=== PATIENT | male | born 1960 | race Caucasian/White ===

== ENCOUNTER 2023-10-10 13:47 | Outpatient (OUT) | payer MEDICARE, MEDICAID, SELFPAY ==
--- NOTE | 2023-10-10 14:40 | P.CN_ITS ---
Consult Note: HPI Data of Consult Patient: new to practice Consult date: 10/10/23 Requesting Physician: Adis Cheung MD Primary Care Provider: ELVI KOHLER Consult Narrative Reason for consult: right posterior head pain Narrative: 63yom who presents for evaluation. he has had posterior and temporal right head pain for several years, which was precipitated by a neurosurgical procedure. he has tried various medications in the past, with limited benefit. he lives in a half-way and is under their care. he denies adverse med side effects. cc:: CC: Adis Cheung MD Review of Systems ROS Status of ROS 10 or more systems reviewed and unremark able except as noted in history and below Exam Narrative Exam Narrative: Psych-alert and oriented x 3.? Attentive and appropriate, constitutionally normal, displays normal mood and affect per situation.? There are no obvious deficits in memory, reasoning, or intellect.? Cranial nerves 3-12 are grossly intact.? Pupils are equally round and reactive to light. No notable photophobia. There is significant palpatory tenderness over the right occipital nerve at the occipital groove. Coordination remains intact.? Gait remains non-antalgic. Assessment and Plan Assessment and Plan (1) Occipital neuralgia of right side: Plan 63yom who presents for evaluation. failed conservative measures. given his sympt oms, it is likely that he suffers from occipital neuralgia. it is prudent to attempt a right occipital nerve block. he is in agreement. medications reviewed, no changes, as he is under care of [facility]-way from medication perspective. follow up in 8 weeks. Procedure: Right occipital nerve block Medications: Bupivacaine 0.25% 2cc, kenalog 40mg I explained the details of the procedure to the patient including the risks, benefits and alternatives. We had an informed discussion and the patient verbalized understanding and signed the consent form. All questions were answered appropriately.? A time out was performed.The patient was identified, the chart was reviewed, and all allergies were confirmed.? Laterality was conducted and marked.? The right side of the occiput was sterilely prepped times three using alcohol. The occipital artery was palpated, then a connor was placed two centimeters lateral to the greater occipital protuberance.? A 27 gauge 1 1/2 inch needle was used to i nject a total of 2.0 mL of 0.25% Bupivicaine with 40 mg of Methylprednisolone after negative aspiration for? heme, CSF, or other bodily fluid.? The needle was then fanned in the direction of the greater occipital nerve.? Vital signs were monitored before, during, and after the procedure and remained stable at all points.? The patient was discharged with no complications.
== END 2023-10-10 13:48 | disposition home or self-care (01) ==
PROVIDERS: PCP Internal Medicine; Visit Provider Anesthesiology
DX: M54.81 Occipital neuralgia (principal)
CPT/HCPCS: 64405

== ENCOUNTER 2023-12-12 13:17 | Outpatient (OUT) | payer MEDICARE, MEDICAID, SELFPAY ==
--- NOTE | 2023-12-12 14:18 | P.CN_ITS ---
Consult Note: HPI Data of Consult Patient: known to practice within the last 3 years Consult date: 12/12/23 Requesting Physician: Adis Cheung MD Primary Care Provider: ELVI KOHLER Consult Narrative Reason for consult: left neck and shoulder pain, left arm pain Narrative: 63yom who presents for assessment. notes moderate improvement after previous right occipital nerve block. now notes pain in left neck and shoulder that radiates down left arm. been ongoing for several years, now getting worse. uses multiple medications, including tylenol, lyrica, percocet, cymbalta, ibuprofen. denies adverse med side effects. cc:: CC: Adis Cheung MD Review of Systems ROS Status of ROS 10 or more systems reviewed and unremark able except as noted in history and below Meds Home Medications and Allergies Home Medications Medication Instructions Recorded Confirmed Type acetaminophen 650 mg 650 mg PO .Q6 PRN pain 10/10/23 10/10/23 History tablet,extended release (8 Hour Pain Reliever) alprazolam 0.5 mg tablet 0.5 mg PO BID 10/10/23 10/10/23 History amlodipine 5 mg tablet 5 mg PO DAILY 10/10/23 10/10/23 History aspirin 81 mg tablet,delayed 81 mg PO DAILY 10/10/23 10/10/23 History release (Adult Low Dose Aspirin) atorvastatin 80 mg tablet 80 mg PO DAILY 10/10/23 10/10/23 History calcium carbonate 200 mg calcium 200 mg PO TID 10/10/23 10/10/23 History (500 mg) chewable tablet (Antacid (calcium carbonate)) chlorthalidone 25 mg tablet 25 mg PO DAILY 10/10/23 10/10/23 History cyanocobalamin (vitamin B-12) 500 500 mcg PO DAILY 10/10/23 10/10/23 History mcg tablet (B-12 DOTS) duloxetine 20 mg capsule,delayed 20 mg PO .AM 10/10/23 10/10/23 History release (Cymbalta) duloxetine 30 mg capsule,delayed 30 mg PO .HS 10/10/23 10/10/23 History release (Cymbalta) empagliflozin 10 mg tablet 10 mg PO DAILY 10/10/23 10/10/23 History (Jardiance) ergocalciferol (vitamin D2) 50,000 50,000 unit PO .weekly 10/10/23 10/10/23 History unit tablet finasteride 5 mg tablet (Proscar) 5 mg PO DAILY 10/10/23 10/10/23 History folic acid 1 mg tablet 1 mg PO DAILY 10/10/23 10/10/23 History hydroxyzine pamoate 25 mg capsule 25 mg PO BID PRN itching 10/10/23 10/10/23 History (Vistaril) ibuprofen 800 mg tablet (IBU) 800 mg PO TID-QID PRN pain 10/10/23 10/10/23 History lidocaine 4 % topical patch 1 patch topical Q12H 10/10/23 10/10/23 History (Lidocaine Pain Relief) magnesium hydroxide 400 mg/5 mL 5 ml PO DAILY PRN constipation 10/10/23 10/10/23 History oral suspension (Milk of Magnesia) melatonin 10 mg capsule 10 mg PO DAILY 10/10/23 10/10/23 History metformin 1,000 mg tablet 1,000 mg PO BID 10/10/23 10/10/23 History modafinil 200 mg tablet 200 mg PO DAILY 10/10/23 10/10/23 History oxybutynin chloride 5 mg tablet 5 mg PO TID PRN bladder spasms 10/10/23 10/10/23 History oxycodone-acetaminophen 5 mg-325 1 tab PO TID PRN pain 10/10/23 10/10/23 History mg tablet (Percocet) phenazopyridine 200 mg tablet 200 mg PO Q8H PRN pain 10/10/23 10/10/23 History (Pyridium) polyethylene glycol 1 %-polyvinyl 1 drp ophthalmic (eye) QID 10/10/23 10/10/23 History alcohol 1 % eye drops potassium chloride 20 mEq 20 meq PO BID 10/10/23 10/10/23 History tablet,extended release pregabalin 100 mg capsule (Lyrica) 100 mg PO .HS 10/10/23 10/10/23 History pregabalin 100 mg capsule (Lyrica) 100 mg PO DAILY 10/10/23 10/10/23 History pregabalin 150 mg capsule (Lyrica) 150 mg PO .HS 10/10/23 10/10/23 History ropinirole 2 mg tablet 2 mg PO DAILY 10/10/23 10/10/23 History sertraline 50 mg tablet 50 mg PO DAILY 10/10/23 10/10/23 History sodium chloride 1,000 mg soluble 1,000 mg PO DAILY 10/10/23 10/10/23 History tablet tamsulosin 0.4 mg capsule 0.8 mg PO DAILY 10/10/23 10/10/23 History thiamine HCl (vitamin B1) 100 mg 50 mg PO DAILY 10/10/23 10/10/23 History tablet tizanidine 2 mg capsule 2 mg PO TID PRN muscle spasticity 10/10/23 10/10/23 History tramadol 50 mg tablet 50 mg PO Q6H PRN pain 10/10/23 10/10/23 History triamcinolone acetonide 40 mg/mL 40 mg Infiltration QWEEK 10/10/23 10/10/23 History suspension for injection Exam Narrative Exam Narrative: Psych-alert and oriented x 3.? Attentive and appropriate, constitutionally normal, displays normal mood and affect per situation.? There are no obvious deficits in memory, reasoning, or intellect.? Skin-no obvious rashes, bruising, or erythema noted to the patient's area of pain. Extremities-upper extremities are warm with minimal edema and palpable pulses. Cervical- tenderness to palpation noted in the cervical spine and paraspinal musculature.? Pain is elicited with extension, and lateral rotation of the cervical spine.? Range of motion is slightly diminished due to pain. Facet loading maneuvers are positive on the left. Shoulder - tender to palpation in left shoulder. Pain with passive abduction, external rotation on left.? Coordination remains intact.? Gait remains non-antalgic. Assessment and Plan Assessment and Plan (1) Left shoulder pain: Qualifiers: Chronicity: chronic Qualified Code(s): M25.512 - Pain in left shoulder; G89.29 - Other chronic pain (2) Cervicalgia: Plan 63yom who presents for assessment. worsening pain throughout left neck, shoulder, arm. given failure to respond to conservative measures, will obtain cervical XR and XR of left shoulder, since he has not had these done for several years. he is in agreement. meds reviewed, no changes. follow up after imaging.
== END 2023-12-12 13:18 | disposition home or self-care (01) ==
LOC: PM 13:17
PROVIDERS: PCP Internal Medicine; Visit Provider Anesthesiology
DX: M25.512 Pain in left shoulder (principal); G89.29 Other chronic pain; M54.2 Cervicalgia
CPT/HCPCS: G0463

== ENCOUNTER 2023-12-28 15:11 | Outpatient (REF) | payer MEDICARE, MEDICAID, SELFPAY ==
[2023-12-28 16:41] LABS: Bilirubin Urine NEGATIVE (NEGATIVE); Blood Urine NEGATIVE (NEGATIVE); Clarity Urine CLEAR (CLEAR); Color Urine LT. YELLOW (YELLOW); Glucose Urine UA >=1000 mg/dL (NEGATIVE); Ketones Urine NEGATIVE (NEGATIVE); Leukocyte Esterase Urine NEGATIVE (NEGATIVE); Nitrite Urine NEGATIVE (NEGATIVE); Protein Urine NEGATIVE (NEG/TRACE); Urobilinogen Urine 0.2 EU/dL (0.2-1.0)
== END 2023-12-28 15:12 | disposition home or self-care (01) ==
LOC: LAB 15:11
PROVIDERS: PCP Internal Medicine; Visit Provider Internal Medicine
DX: R52 Pain, unspecified (principal)
CPT/HCPCS: 81003

== ENCOUNTER 2024-01-11 09:35 | Outpatient (OUT) | payer MEDICARE, MEDICAID, SELFPAY ==
--- NOTE | 2024-01-11 10:23 | P.CN_ITS ---
Consult Note: HPI Data of Consult Patient: known to practice within the last 3 years Consult date: 12/12/23 Requesting Physician: Eusebia Kilpatrick NP Primary Care Provider: ELVI KOHLER Consult Narrative Reason for consult: left neck and shoulder pain, left arm pain Narrative: 63yom who presents for assessment. notes moderate improvement after previous right occipital nerve block. now notes pain right ribs and left shoulder. uses multiple medications, including tylenol, lyrica, percocet, cymbalta, ibuprofen. denies adverse med side effects. Patient here to review imaging of cervical spine and left shoulder. Denies numbness tingling weakness of BUE. Pain today 7- 8/10 increased with activity. cc:: CC: Eusebia Kilpatrick NP Review of Systems ROS Status of ROS 10 or more systems reviewed and unremark able except as noted in history and below Musculoskeletal Reports: neck pain and joint pain Meds Home Medications and Allergies Home Medications ?Medication ?Instructions ?Recorded ?Confirmed ?Type acetaminophen 650 mg 650 mg PO .Q6 PRN pain 10/10/23 10/10/23 History tablet,extended release (8 Hour Pain Reliever) alprazolam 0.5 mg tablet 0.5 mg PO BID 10/10/23 10/10/23 History amlodipine 5 mg tablet 5 mg PO DAILY 10/10/23 10/10/23 History aspirin 81 mg tablet,delayed 81 mg PO DAILY 10/10/23 10/10/23 History release (Adult Low Dose Aspirin) atorvastatin 80 mg tablet 80 mg PO DAILY 10/10/23 10/10/23 History calcium carbonate 200 mg calcium 200 mg PO TID 10/10/23 10/10/23 History (500 mg) chewable tablet (Antacid (calcium carbonate)) chlorthalidone 25 mg tablet 25 mg PO DAILY 10/10/23 10/10/23 History cyanocobalamin (vitamin B-12) 500 500 mcg PO DAILY 10/10/23 10/10/23 History mcg tablet (B-12 DOTS) duloxetine 20 mg capsule,delayed 20 mg PO .AM 10/10/23 10/10/23 History release (Cymbalta) duloxetine 30 mg capsule,delayed 30 mg PO .HS 10/10/23 10/10/23 History release (Cymbalta) empagliflozin 10 mg tablet 10 mg PO DAILY 10/10/23 10/10/23 History (Jardiance) ergocalciferol (vitamin D2) 50,000 50,000 unit PO .weekly 10/10/23 10/10/23 History unit tablet finasteride 5 mg tablet (Proscar) 5 mg PO DAILY 10/10/23 10/10/23 History folic acid 1 mg tablet 1 mg PO DAILY 10/10/23 10/10/23 History hydroxyzine pamoate 25 mg capsule 25 mg PO BID PRN itching 10/10/23 10/10/23 History (Vistaril) ibuprofen 800 mg tablet (IBU) 800 mg PO TID-QID PRN pain 10/10/23 10/10/23 History lidocaine 4 % topical patch 1 patch topical Q12H 10/10/23 10/10/23 History (Lidocaine Pain Relief) magnesium hydroxide 400 mg/5 mL 5 ml PO DAILY PRN constipation 10/10/23 10/10/23 History oral suspension (Milk of Magnesia) melatonin 10 mg capsule 10 mg PO DAILY 10/10/23 10/10/23 History metformin 1,000 mg tablet 1,000 mg PO BID 10/10/23 10/10/23 History modafinil 200 mg tablet 200 mg PO DAILY 10/10/23 10/10/23 History oxybutynin chloride 5 mg tablet 5 mg PO TID PRN bladder spasms 10/10/23 10/10/23 History oxycodone-acetaminophen 5 mg-325 1 tab PO TID PRN pain 10/10/23 10/10/23 History mg tablet (Percocet) phenazopyridine 200 mg tablet 200 mg PO Q8H PRN pain 10/10/23 10/10/23 History (Pyridium) polyethylene glycol 1 %-polyvinyl 1 drp ophthalmic (eye) QID 10/10/23 10/10/23 History alcohol 1 % eye drops potassium chloride 20 mEq 20 meq PO BID 10/10/23 10/10/23 History tablet,extended release pregabalin 150 mg capsule (Lyrica) 150 mg PO TID 10/10/23 12/12/23 History ropinirole 2 mg tablet 2 mg PO DAILY 10/10/23 10/10/23 History sertraline 50 mg tablet 100 mg PO DAILY 10/10/23 12/12/23 History sodium chloride 1,000 mg soluble 1,000 mg PO DAILY 10/10/23 10/10/23 History tablet tamsulosin 0.4 mg capsule 0.8 mg PO DAILY 10/10/23 10/10/23 History thiamine HCl (vitamin B1) 100 mg 50 mg PO DAILY 10/10/23 10/10/23 History tablet tizanidine 2 mg capsule 2 mg PO TID PRN muscle spasticity 10/10/23 10/10/23 History tramadol 50 mg tablet 50 mg PO Q6H PRN pain 10/10/23 10/10/23 History triamcinolone acetonide 40 mg/mL 40 mg Infiltration QWEEK 10/10/23 10/10/23 History suspension for injection Exam Narrative Exam Narrative: Psych-alert and oriented x 3.? Attentive and appropriate, constitutionally normal, displays normal mood and affect per situation.? There are no obvious deficits in memory, reasoning, or intellect.? Skin-no obvious rashes, bruising, or erythema noted to the patient's area of pain. Extremities-upper extremities are warm with minimal edema and palpable pulses. Cervical- tenderness to palpation noted in the cervical spine and paraspinal musculature.? Pain is elicited with extension, and lateral rotation of the cervical spine.? Range of motion is slightly diminished due to pain. Facet loading maneuvers are positive on the left. Shoulder - tender to palpation in left shoulder. Pain with passive abduction, external rotation on left.?positive cross body test, pain over AC joint Coordination remains intact.? Gait remains non-antalgic. Constitutional Documenting provider has reviewed patient's vital signs: yes Common normals: no apparent distress, oriented x3, healthy appearing, alert and well nourished General appearance: cooperative [facility] Common normals: normocephalic, hearing grossly normal bilaterally and moist oral mucous membranes Head and scalp: normocephalic Eye Common normals: PERRL Pupil: PERRL Neck & C-Spine Common normals: full ROM General: normal visual inspection Chest Common normals: inspection of chest normal Respiratory Common normals: normal respiratory effort, no retractions and no use of accessory muscles Neuro Common normals: oriented x3, CN's II-XII intact bilaterally, moves all extremities, no focal motor deficits, no sensory deficits noted and deep tendon reflexes 2+ bilaterally Sensorium/orientation: alert Motor exam: strength 5/5 throughout and no movement abnormalities noted Psych Common normals: mental status grossly normal, thought process normal, cooperative, affect normal, speech normal and activity/motor behavior normal Speech: normal speech Thought process: normal thought process Results Additional Findings Additional findings: If on a controlled substance or opioids, I have checked an [place] report on this patient and there are no aberrancies noted in the prescribing history.??If on a controlled substance or opioid a drug screen was completed and reviewed within the last year, and if there has not been a drug screen completed we ordered one today to monitor higher risk, state monitored pain medication use. As part of providing excellent, safe, comprehensive care, the following was completed at our patient's visit: 1. A medication reconciliation and review to ensure accurate knowledge of current/active medications, including asking our patients to inform us about any [id number] medications or herbal remedies/nutritional supplements/alternative remedies. 2. A review to specifically ensure our patients have had annual screening for screening for depression, screening for tobacco use, and screening for unhealthy alcohol use. For concerning screenings had a discussion with the patient, provided patient education, and recommended follow-up with primary care provider when appropriate. If patient noted with a risk of falling, they received education on strength, gait, and balance training to prevent future risk of falling. Assessment and Plan Assessment and Plan (1) Left shoulder pain: Qualifiers: Chronicity: chronic Qualified Code(s): M25.512 - Pain in left shoulder; G89.29 - Other chronic pain (2) Cervical spondylosis: Plan xray of cervical spine and left shoulder reviewed, left AC injection with Dr Cheung consider bilateral C4-5 C5-6 facet blocks working towards RFA in the future or left suprascapular/axillary NB working towards RFA in the future. continue medications through facility f/u with Dr Cheung
== END 2024-01-11 09:36 | disposition home or self-care (01) ==
LOC: PM 09:35
PROVIDERS: PCP Internal Medicine; Visit Provider Nurse Practitioner
DX: M25.512 Pain in left shoulder (principal); G89.29 Other chronic pain; M47.812 Spondylosis without myelopathy or radiculopathy, cervical region
CPT/HCPCS: G0463